=== PATIENT | female | born 1975 | race American Indian/Alaskan Native ===

== ENCOUNTER 2021-09-05 15:56 | Emergency (ER) | payer MEDICAID ==
--- NOTE | 2021-09-05 18:31 | Vascular Lab Report ---
DUPLEX DOPPLER LOWER EXTREMITY VEINS, LEFT INDICATION / CLINICAL INFORMATION: Left leg pain and swelling. History of DVT TECHNIQUE: Duplex doppler imaging was performed through the veins of the left lower extremity using v enous compression and other maneuvers. COMPARISON: None available. FINDINGS: The study is technically difficult. LEFT COMMON FEMORAL VEIN: Negative. LEFT FEMORAL VEIN: Negative. LEFT POPLITEAL VEIN: Negative. LEFT CALF VEINS: Negative. ADDITIONAL FINDINGS: There is edema in the left lower extremity. No abnormal mass or fluid collection is seen. IMPRESSION: No sonographic evidence for DVT in the left lower extremity. Signer Name: Barney Santos MD Signed: 09/05/2021 6:27 PM Workstation Name: [id number]
[2021-09-05 19:02] LABS: Hemoglobin 6.1 gm/dl (10.1-14.3); Mean Corpuscular HGB Conc 32 % (30-34); Mean Corpuscular Volume 97 fl (79-97); Platelet Count 368 K/mm3 (140-440); Red Blood Count 1.99 M/mm3 (3.65-5.03)
[2021-09-05 19:13] LABS: Hematocrit 19.3 % (30.3-42.9); Red Cell Distribution Width 25.8 % (13.2-15.2)
[2021-09-05 19:17] LABS: INR 4.01 (0.87-1.13)
[2021-09-05 19:18] LABS: Partial Thromboplastin Time 47.4 Sec. (24.2-36.6)
[2021-09-05 19:29] LABS: Albumin 2.3 g/dL (3.9-5); Calcium 7.7 mg/dL (8.4-10.2)
[2021-09-05 21:00] LABS: Band Neutrophils # (Manual) 0.1 K/mm3; Basophils % (Manual) 0 % (0.0-1.8); Eosinophils % (Manual) 0 % (0.0-4.3); Total Cells Counted 100
[2021-09-05 21:02] LABS: Anisocytosis 1+
[2021-09-05 21:03] LABS: Hypochromasia 1+; Macrocytosis 1+; Platelet Estimate Consistent w Auto; Target Cells 1+
[2021-09-05] MEDS ORDERED: SODIUM CHLORIDE 0.9% 500 ML 500 ML IV ONE (22:59)
--- NOTE | 2021-09-05 23:04 | Emergency Department Report ---
ED General Adult HPI - General Chief complaint: Extremity Problem,Nontraumatic Stated complaint: LEFT SWOLLEN LEG/WITH PAIN Time Seen by Provider: 09/05/21 22:01 Source: patient Mode of arrival: Ambulatory Limitations: No Limitations - History of Present Illness Initial comments: 45 yo F with history of blood disorder who present with bilateral leg edema for the last couple of weeks associated with generalized fatigue progressively getting worse. No fever or chills reported. Pt spouse who was in the exam room reports that patient is chronic alcoholic and have finished 3 bottles of wine the last 48 hours. No other modifying or associated factors reported. Severity scale (0 -10): 0 - Related Data Allergies Allergy/AdvReac Type Severity Reaction Status Date / Time codeine AdvReac Nausea Verified 09/05/21 16:49 NSAIDS (Non-Steroidal AdvReac Unknown Verified 09/05/21 16:49 Anti-Inflamma ED Review of Systems ROS: Stated complaint: LEFT SWOLLEN LEG/WITH PAIN Other details as noted in HPI Comment: All other systems reviewed and negative Constitutional: weakness Cardiovascular: edema Hematological/Lymphatic: other (fatigue ) ED Past Medical Hx - Past Medical History Hx CVA: Yes Additional medical history: DVT, Blood disorder - Surgical History Additional Surgical History: , GI Bypass - Social History Smoking Status: Never Smoker ED Physical Exam - General Limitations: No Limitations General appearance: alert, in no apparent distress, obese - Head Head exam: Present: atraumatic, normal inspection - Eye Eye exam: Present: other (pale conjunctival ) Pupils: Present: normal accommodation - ENT ENT exam: Present: normal exam, mucous membranes dry - Neck Neck exam: Present: normal inspection, full ROM. Absent: tenderness - Respiratory Respiratory exam: Present: normal lung sounds bilaterally. Absent: respiratory distress, accessory muscle use - Cardiovascular Cardiovascular Exam: Present: regular rate, normal rhythm, normal heart sounds - GI/Abdominal GI/Abdominal exam: Present: soft, normal bowel sounds. Absent: distended, tenderness - Extremities Exam Extremities exam: Present: full ROM, normal capillary refill, pedal edema. Absent: calf tenderness - Back Exam Back exam: Absent: tenderness - Neurological Exam Neurological exam: Present: alert, oriented X3 - Psychiatric Psychiatric exam: Present: normal affect, normal mood - Skin Skin exam: Present: warm, dry ED Course Vital Signs 09/05/21 09/05/21 09/05/21 16:44 22:00 22:10 Temperature 98.4 F 97.9 F Pulse Rate 104 H 99 H 93 H Respiratory 14 17 16 Rate Blood Pressure 104/57 Blood Pressure 102/37 [Left] O2 Sat by Pulse 100 99 100 Oximetry 09/05/21 09/05/21 09/05/21 22:15 22:31 22:45 Temperature Pulse Rate 93 H 100 H 105 H Respiratory 10 L 9 L 18 Rate Blood Pressure 102/37 102/37 96/61 Blood Pressure [Left] O2 Sat by Pulse 97 100 99 Oximetry 09/05/21 09/05/21 09/05/21 23:01 23:15 23:31 Temperature Pulse Rate 102 H 101 H 98 H Respiratory 15 13 12 Rate Blood Pressure 96/61 96/61 96/61 Blood Pressure [Left] O2 Sat by Pulse 100 99 99 Oximetry 09/05/21 09/05/21 09/06/21 23:45 23:47 00:01 Temperature Pulse Rate 99 H 97 H 103 H Respiratory 16 16 13 Rate Blood Pressure 96/61 95/39 95/39 Blood Pressure [Left] O2 Sat by Pulse 99 100 94 Oximetry 09/06/21 09/06/21 09/06/21 00:15 00:31 00:45 Temperature Pulse Rate 104 H 101 H 104 H Respiratory 16 17 15 Rate Blood Pressure 95/39 95/39 88/63 Blood Pressure [Left] O2 Sat by Pulse 100 100 100 Oximetry 09/06/21 09/06/21 09/06/21 01:00 01:15 01:31 Temperature Pulse Rate 100 H 105 H 101 H Respiratory 12 22 12 Rate Blood Pressure 88/63 88/63 Blood Pressure [Left] O2 Sat by Pulse 99 100 99 Oximetry 09/06/21 09/06/21 09/06/21 01:45 02:01 02:15 Temperature Pulse Rate 98 H 102 H 102 H Respiratory 20 15 16 Rate Blood Pressure 88/63 88/63 93/46 Blood Pressure [Left] O2 Sat by Pulse 100 98 99 Oximetry 09/06/21 09/06/21 09/06/21 02:31 02:45 03:01 Temperature Pulse Rate 100 H 100 H 98 H Respiratory 13 22 16 Rate Blood Pressure 93/46 93/46 86/36 Blood Pressure [Left] O2 Sat by Pulse 100 100 99 Oximetry 09/06/21 09/06/21 09/06/21 03:15 03:31 03:45 Temperature Pulse Rate 102 H 101 H 101 H Respiratory 18 15 14 Rate Blood Pressure 86/36 86/36 101/51 Blood Pressure [Left] O2 Sat by Pulse 100 100 99 Oximetry 09/06/21 09/06/21 09/06/21 04:01 04:15 04:31 Temperature Pulse Rate 99 H 100 H 91 H Respiratory 15 11 L 10 L Rate Blood Pressure 101/51 101/51 101/51 Blood Pressure [Left] O2 Sat by Pulse 100 96 100 Oximetry 09/06/21 09/06/21 09/06/21 04:45 05:01 05:15 Temperature Pulse Rate 101 H 88 100 H Respiratory 18 9 L 15 Rate Blood Pressure 102/40 102/40 102/40 Blood Pressure [Left] O2 Sat by Pulse 99 98 100 Oximetry 09/06/21 09/06/21 05:31 05:45 Temperature Pulse Rate 97 H 105 H Respiratory 13 21 Rate Blood Pressure 102/40 95/53 Blood Pressure [Left] O2 Sat by Pulse 100 72 L Oximetry ED Medical Decision Making - Lab Data Result diagrams: 09/05/21 18:34 09/05/21 18:34 - Medical Decision Making here with generalized muscle weakness and leg pitting edema with alcoholism-- this raises concern for liver or kidney insufficiency-- also noted to be pale as well-- with blood disorder-- anemia could be contributing to her symptoms of fatigue-- will go ahead and order routine labs CBC, CMP, UA, alcohol level or UDS-- Lab reviewed and noted with low H&H 6.1/19.3 with normal renal function-- also noted with low Ca+ 7.7 with isolated elevated AST with t-bili-- will start transfusion pRBC and consider admission-- Critical care attestation.: If time is entered above; I have spent that time in minutes in the direct care of this critically ill patient, excluding procedure time. ED Disposition Clinical Impression: Leg edema Anemia Qualifiers: Anemia type: unspecified type Qualified Code(s): D64.9 - Anemia, unspecified Disposition: 07 LEFT AGAINST MEDICAL ADVICE Is pt being admited?: No Does the pt Need Aspirin: No Condition: Stable Additional Instructions: Please return to the emergency room if your symptoms worsen even though you have signed out AGAINST MEDICAL ADVICE to be reevaluated and treated Referrals: CARBUCCIA,SIM, MD [Primary Care Provider] - 3-5 Days
[2021-09-06] MEDS ORDERED: SODIUM CHLORIDE 0.9% 1000 ML 1,000 ML ONE (03:26)
[2021-09-06 06:14] VITALS: BP 95/53
== END 2021-09-06 06:17 | disposition left against medical advice (07) ==
LOC: ED 15:56
DX: D64.9 Anemia, unspecified (principal); Z88.5 Allergy status to narcotic agent
CPT/HCPCS: 36415; 80053; 85007; 85025; 85610; 85730; 86850; 86870; 86900; 86901; 93971; 96360; 99284; J7030; J7040; 86920